=== PATIENT | female | born 1985 | race Caucasian/White ===

== ENCOUNTER 2018-07-18 19:06 | Emergency (ER) | payer SELFPAY ==
--- NOTE | 2018-07-18 19:18 | ER Report ---
History and Physical Time Seen By MD: 19:18 HPI/ROS CHIEF COMPLAINT: Forearm laceration HISTORY OF PRESENT ILLNESS: This is a 33-year-old female. She's been frustrated recently, was doing some cutting on her arms. She has done this in the past. She denies being suicidal or wanting to hurt anybody else. Cutting was a little too deep on the forearm and she has 2 areas of the cutting that look like they need to be repaired. Denies any weakness or compromise of motor function. No sensory problem. She has a good support network in place can help her with stress at this point. She is not interested in coming into the hospital for help with this. Allergies: Coded Allergies: cephalexin (Verified Adverse Reaction, Intermediate, itching, 07/18/18) doxycycline (Verified Adverse Reaction, Intermediate, itching, 07/18/18) Home Meds No Active Prescriptions or Reported Meds Reviewed Nurses Notes: Yes Constitutional Vital Sign - Last 24 Hours 07/18/18 19:24 Temp 98.2 Pulse 108 Resp 24 B/P (MAP) 133/87 Pulse Ox 93 O2 Delivery Room Air Physical Exam Gen.: Alert, no acute distress. Skin: Has 2 lacerations on her ventral forearm on the left side. Musculoskeletal: Normal motor function. No tendon compromise. Neuro: Normal sensation. Cardiovascular: Normal peripheral perfusion Medical Decision Making ED Course/Re-evaluation ED Course Procedure: Laceration Repair Verbal consent from patient after discussing repair options, risks and benefits. Wound cleaned extensively with Hibiclens and saline. Anesthesia: Local 1% lidocaine with epinephrine and 0.5% bupivacaine. Location: Left ventral forearm. Length: Both lacerations are approximately 3 cm in length. Character: Into subcutaneous tissue. There were no deep structures involved. No tendon injury was identified. Wound repair: Running . 4-0 Ethilon sutures The wound repair was simple and performed by myself. Wound care instructions discussed. Sutures need to be removed in 7 days. Tetanus booster given. Decision to Disposition Date: Jul 18, 2018 Decision to Disposition Time: 20:11 Depart Departure Latest Vital Signs Vital Signs Date Time Temp Pulse Resp B/P (MAP) Pulse Ox O2 Delivery O2 Flow Rate FiO2 07/18/18 19:24 98.2 108 24 133/87 93 Room Air Impression: Primary Impression: Laceration of left forearm Condition: Improved Disposition: HOME OR SELF-CARE New Scripts No Active Prescriptions or Reported Meds Patient Instructions: Laceration (ED) Additional Instructions: Wound Care: Wash the wound once a day with soap and water. Dry the wound and apply a small amount of antibiotic ointment with a clean dressing. If the dressing becomes wet or dirty, repeat cleaning and dressing as above. No soaking the wound; no swimming. Stitches need to be removed in 5-7 days. Pain Control: Use Tylenol or ibuprofen for pain. Using and ice pack can help reduce swelling. Problem Qualifiers Primary Impression: Laceration of left forearm Encounter type: initial encounter Qualified Codes: S51.812A - Laceration without foreign body of left forearm, initial encounter FREDDY GORDILLO MD Jul 18, 2018 19:18
[2018-07-18 19:24] VITALS: BP 133/87
[2018-07-18] MEDS ORDERED: DIPHTH/TETANUS/ACEL. PERTUSSIS IM ONLY ONE (19:35)
== END 2018-07-18 20:19 | disposition home or self-care (01) ==
LOC: ER 19:21
DX: S51.812A Laceration without foreign body of left forearm, initial encounter (principal)
CPT/HCPCS: 90471; 90715; 99283

== ENCOUNTER 2018-09-27 17:40 | Emergency (ER) | payer MEDICAID ==
--- NOTE | 2018-09-27 18:03 | ER Report ---
History and Physical Time Seen By MD: 18:03 Hx. of Stated Complaint: PATIENT REPORTS RIGHT LOWER ARM NUMBNESS FOR THE LAST 3 WEEKS HPI/ROS CHIEF COMPLAINT: arm/hand numbness and weakness. HISTORY OF PRESENT ILLNESS: This is a 33 year old female. She has been having numbness in the right arm and hand. Onset about 3 weeks ago. At first, she thinks that it was her index finger and middle finger, but not sure, shortly aft er this her whole and forearm to the elbow. Tingling sensation at first, now mostly numb. Feels weak, not able to use hand to do things like hold things or do her hair. She thought it might be an ulnar nerve problem at the elbow which she has experience previously, but this seemed different. Has no other neurologic changes. Denies pain in shoulder or neck region. No injuries. No headache. No vision changes. No dizziness. REVIEW OF SYSTEMS: Constitutional: No fever or chills. Eyes: No vision changes. ENT: No sore throat. No congestion. Cardiovascular: No chest pain. No palpitations. Respiratory: No cough. No shortness of breath. Gastrointestinal: No abdominal pain. No nausea or vomiting. No change in bowel movements. Genitourinary: No dysuria. No frequency Musculoskeletal: No musculoskeletal pain. Skin: No rashes. No bruising. Neurological: As above. Allergies: Coded Allergies: cephalexin (Verified Adverse Reaction, Intermediate, itching, 07/18/18) doxycycline (Verified Adverse Reaction, Intermediate, itching, 07/18/18) Home Meds Active Scripts Cyclobenzaprine Hcl (CYCLOBENZAPRINE HCL) 10 Mg Tablet, 10 MG PO Q8H PRN for MUSCLE SPASMS, #20 TAB 0 Refills Prov:FREDDY GORDILLO MD 09/27/18 Gabapentin (GABAPENTIN) 300 Mg Capsule, 300 MG PO TID, #90 CAPSULE 0 Refills Prov:FREDDY GORDILLO MD 09/27/18 Reviewed Nurses Notes: Yes Constitutional Vital Sign - Last 24 Hours 09/27/18 09/27/18 09/27/18 09/27/18 17:47 17:48 18:00 18:10 Temp 97.9 Pulse 83 81 Resp 24 B/P (MAP) 128/88 (101) 128/88 126/76 (93) Pulse Ox 98 98 O2 Delivery Room Air 09/27/18 09/27/18 09/27/18 09/27/18 18:30 20:30 20:33 21:00 Pulse 80 75 B/P (MAP) 92/69 (77) 137/95 (109) Pulse Ox 98 94 09/27/18 09/27/18 21:00 21:30 Pulse 75 75 Pulse Ox 94 96 Physical Exam General Appearance: The patient is alert. No acute distress. Non-toxic in appearance. Eyes: Pupils are equal, round. Reactive to light. No pallor, injection or icterus. Extraocular movements are intact. ENT: Mucous membranes are moist. Normal oral mucosa. Posterior oropharynx is normal. Neck: Supple and non tender. No lymphadenopathy. Respiratory: Lungs are clear to auscultation. Cardiovascular: Regular rate and rhythm. No murmurs, gallops or rubs. Normal peripheral perfusion. Gastrointestinal: Abdomen is soft and non tender. Nondistended. Normal active bowel sounds. Neurological: Alert and oriented x3. Cranial nerves are intact, eye exam as above, normal motor of the face without droop, Midline tongue and palate is symmetric. Right arm numb from the elbow distally. Normal sensation at the shoulder and upper arm. Weakness in hand mounter, interossious muscles, wrist movement compared to the left side. Normal shoulder and elbow function/strength. Negative tinnels with areas throughout the arm and neck. Skin: Warm and dry. No rashes. Musculoskeletal: Extremities are nontender, specifically no pain in right arm other than paresthesias. No pain in cervical spine, trapezius, levator scapulae, rhomboids, neck muscles. No tenderness in palpation of the midline cervical, thoracic and lumbar spine. DIFFERENTIAL DIAGNOSIS: After history and physical exam, differential diagnosis was considered for right arm numbness and weakness. Does not follow a peripheral nerve pattern or even a cervical nerve root pattern, so concern about central, although start of symptoms would have been questionable for peripheral nerve inv olvement, but current pattern does not clearly show this. Will get labs and MRI cervical spine and brain. Medical Decision Making Data Points Result Diagram: 09/27/18183609/27/181836 Laboratory Hematology Test 09/27/18 18:37 Red Blood Count 5.28 M/uL (4.17-5.56) Mean Corpuscular Volume 90.4 fL (80.0-96.0) Mean Corpuscular Hemoglobin 30.2 pg (26.0-33.0) Mean Corpuscular Hemoglobin Concent 33.4 g/dL (32.0-36.0) Red Cell Distribution Width 13.9 % (11.5-14.5) Mean Platelet Volume 8.4 fL (7.2-11.1) Neutrophils (%) (Auto) 47.3 % (39.4-72.5) Lymphocytes (%) (Auto) 41.9 % (17.6-49.6) Monocytes (%) (Auto) 7.5 % (4.1-12.4) Eosinophils (%) (Auto) 2.7 % (0.4-6.7) Basophils (%) (Auto) 0.6 % (0.3-1.4) Nucleated RBC Relative Count (auto) 0.0 /100WBC Neutrophils # (Auto) 3.8 K/uL (2.0-7.4) Lymphocytes # (Auto) 3.3 K/uL (1.3-3.6) Monocytes # (Auto) 0.6 K/uL (0.3-1.0) Eosinophils # (Auto) 0.2 K/uL (0.0-0.5) Basophils # (Auto) 0.0 K/uL (0.0-0.1) Nucleated RBC Absolute Count (auto) 0.00 K/uL Erythrocyte Sedimentation Rate 2 mm/HOUR (0-20) Sodium Level 141 mmol/L (137-145) Potassium Level 3.7 mmol/L (3.5-5.0) Chloride Level 108 mmol/L (98-107) Carbon Dioxide Level 26 mmol/L (22-31) Blood Urea Nitrogen 13 mg/dl (7-18) Creatinine 0.70 mg/dl (0.52-1.04) Glomerular Filtration Rate Calc > 60.0 Random Glucose 59 mg/dl (75-110) Calcium Level 9.1 mg/dl (8.4-10.2) Total Bilirubin 0.3 mg/dl (0.2-1.3) Aspartate Amino Transf (AST/SGOT) 18 U/L (0-35) Alanine Aminotransferase (ALT/SGPT) 24 U/L (0-56) Alkaline Phosphatase 77 U/L (0-126) C-Reactive Protein < 0.5 mg/dl (<1.0) Total Protein 7.0 g/dl (6.3-8.2) Albumin 4.1 g/dl (3.5-5.0) Chemistry Test 09/27/18 18:37 White Blood Count 8.0 k/uL (4.5-11.0) Red Blood Count 5.28 M/uL (4.17-5.56) Hemoglobin 15.9 g/dL (12.0-16.0) Hematocrit 47.7 % (34.0-47.0) Mean Corpuscular Volume 90.4 fL (80.0-96.0) Mean Corpuscular Hemoglobin 30.2 pg (26.0-33.0) Mean Corpuscular Hemoglobin Concent 33.4 g/dL (32.0-36.0) Red Cell Distribution Width 13.9 % (11.5-14.5) Platelet Count 278 K/uL (150-450) Mean Platelet Volume 8.4 fL (7.2-11.1) Neutrophils (%) (Auto) 47.3 % (39.4-72.5) Lymphocytes (%) (Auto) 41.9 % (17.6-49.6) Monocytes (%) (Auto) 7.5 % (4.1-12.4) Eosinophils (%) (Auto) 2.7 % (0.4-6.7) Basophils (%) (Auto) 0.6 % (0.3-1.4) Nucleated RBC Relative Count (auto) 0.0 /100WBC Neutrophils # (Auto) 3.8 K/uL (2.0-7.4) Lymphocytes # (Auto) 3.3 K/uL (1.3-3.6) Monocytes # (Auto) 0.6 K/uL (0.3-1.0) Eosinophils # (Auto) 0.2 K/uL (0.0-0.5) Basophils # (Auto) 0.0 K/uL (0.0-0.1) Nucleated RBC Absolute Count (auto) 0.00 K/uL Erythrocyte Sedimentation Rate 2 mm/HOUR (0-20) Glomerular Filtration Rate Calc > 60.0 Calcium Level 9.1 mg/dl (8.4-10.2) Total Bilirubin 0.3 mg/dl (0.2-1.3) Aspartate Amino Transf (AST/SGOT) 18 U/L (0-35) Alanine Aminotransferase (ALT/SGPT) 24 U/L (0-56) Alkaline Phosphatase 77 U/L (0-126) C-Reactive Protein < 0.5 mg/dl (<1.0) Total Protein 7.0 g/dl (6.3-8.2) Albumin 4.1 g/dl (3.5-5.0) EKG/Imaging Imaging MR BRAIN/BRAIN STEM W/ & W/O CON Comparisons: None. Additional pertinent history: Weakness involving the right arm with numbness. TECHNIQUE: Multiplanar, multisequence brain MRI was performed with and without gadolinium contrast. Contrast: 15 mL of MultiHance FINDINGS: Sagittal midline structures and craniocervical junction: Negative. Midline shift: None. Ventricles: Negative. Brain parenchyma: Diffusion weighted imaging: Negative. Gradient sequence: Negative. T2 weighted FLAIR images: Negative. Extra-axial spaces: Negative. Dural venous sinuses and major arterial flow voids: Negative. Mastoid air cells and paranasal sinuses: Negative. Surrounding soft tissues and orbits: Negative. Impression: Normal brain MRI with and without contrast. Report Dictated By: Clarence Jones MD at 09/27/2018 8:48 PM MR SPINE CERVICAL W/ & W/O CON COMPARISON: None Additional pertinent history: Right arm weakness and numbness. Technique: Multiplanar multisequence cervical spine MRI was performed with and without gadolinium enhancement. CONTRAST: 15 ml of MultiHance. FINDINGS: Vertebral body height and alignment: Negative Vertebral marrow signal: Negative Vertebral bodies: Negative Cervical spinal cord signal, craniocervical junction and visualized posterior fossa: Negative Surrounding soft tissues: Negative Inspection of the disc spaces reveal the following: C1-C2: Negative C2-C3: Negative C3-C4: Negative C4-C5: Negative C5-C6: Negative C6-C7: Negative C7-T1: Negative Pathologic enhancement: Negative. Impression: Normal cervical spine MRI with and without contrast. Report Dictated By: Clarence Jones MD at 09/27/2018 8:52 PM ED Course/Re-evaluation Clinical Indication for ER IV: Hydration, IV Access ED Course Negative MRI. Worsening pain after MRI, gave a 0.5mg dose of Dilaudid, no improvement. Discussed results of labs and MRI, recommended f/u with Neurology. Trial of Gabapentin, Ibuprofen, Flexeril. Heat/ice and compression of peripheral nerves at elbow and wrist also will be attempted to see if this helps. See instructions below. Decision to Disposition Date: September 27, 2018 Decision to Disposition Time: 21:34 Depart Departure Latest Vital Signs Vital Signs Date Time Temp Pulse Resp B/P (MAP) Pulse Ox O2 Delivery O2 Flow Rate FiO2 09/27/18 21:30 75 96 09/27/18 20:33 137/95 (109) 09/27/18 17:48 97.9 24 Room Air Impression: Primary Impression: Arm paresthesia, right Condition: Improved Disposition: HOME OR SELF-CARE New Scripts Cyclobenzaprine Hcl (CYCLOBENZAPRINE HCL) 10 Mg Tablet 10 MG PO Q8H PRN for MUSCLE SPASMS, #20 TAB 0 Refills Prov: FREDDY GORDILLO MD 09/27/18 Gabapentin (GABAPENTIN) 300 Mg Capsule 300 MG PO TID, #90 CAPSULE 0 Refills Prov: FREDDY GORDILLO MD 09/27/18 Patient Instructions: Paresthesia (ED) Additional Instructions: We did not find a definitive cause for the nerve pain and numbness in your arm. MRI imaging was negative. You will need to follow-up with Neurology. Dr. Carla Argueta MD comes to [place] and is part of the [facility]. Her number is . We are going to start the following medications: Gabapentin 300mg. Start with one at bedtime for about 3 days, then increase to twice a day for 3 days, then increase to taking one three times a day. Flexeril 10mg, one every 8 hours for muscle spasm and pain. Ibuprofen 200mg over the counter tablets, take 4 tablets 3 times a day with food. You can try alternating heat and ice on the neck, shoulder, and arm area to see if this helps. You can try using compression on the wrist and elbow with OTTO compression wraps. FREDDY GORDILLO MD September 27, 2018 18:03
[2018-09-27] MEDS ORDERED: NS(*) 0.9% 1000 ML BAG 1,000 ML IV ONE (18:35)
[2018-09-27] MEDS ORDERED: GADOBENATE 529MG/1ML 15ML VIAL IVP ONE (18:53)
[2018-09-27 18:56] LABS: PLATELET COUNT, AUTOMATED 278 K/uL (150-450)
[2018-09-27 20:33] VITALS: BP 137/95
[2018-09-27] MEDS ORDERED: HYDROMORPHONE HCL 1 MG/ML SYRINGE IVP ONE (20:50)
--- NOTE | 2018-09-27 20:58 | RADIOLOGY IMAGING REPORT ---
FACILITY: [facility] PATIENT NAME: Ana Cristina Canales : 1985 MR: [id number] V: [id number] EXAM DATE: ORDERING PHYSICIAN: FREDDY GORDILLO TECHNOLOGIST: Location: [facility] [place] Patient: Ana Cristina Canales : 1985 Visit/Account:[id number] Date of Sevice: 09/27/2018 MR SPINE CERVICAL W/ & W/O CON COMPARISON: None Additional pertinent history: Right arm weakness and numbness. Technique: Multiplanar multisequence cervical spine MRI was performed with and without gadolinium enh ancement. CONTRAST: 15 ml of MultiHance. FINDINGS: Vertebral body height and alignment: Negative Vertebral marrow signal: Negative Vertebral bodies: Negative Cervical spinal cord signal, craniocervical junction and visualized posterior fossa: Negative Surrounding soft tissues: Negative Inspection of the disc spaces reveal the following: C1-C2: Negative C2-C3: Negative C3-C4: Negative C4-C5: Negative C5-C6: Negative C6-C7: Negative C7-T1: Negative Pathologic enhancement: Negative. Impression: Normal cervical spine MRI with and without contrast. Report Dictated By: Clarence Jones MD at 09/27/2018 8:52 PM Report E-Signed By: Clarence Jones MD at 09/27/2018 8:55 PM WSN:[email or web address]
--- NOTE | 2018-09-27 21:02 | RADIOLOGY IMAGING REPORT ---
FACILITY: [facility] - [place] PATIENT NAME: Ana Cristina Canales : 1985 MR: [id number] V: [id number] EXAM DATE: ORDERING PHYSICIAN: FREDDY GORDILLO TECHNOLOGIST: Location: [facility] [place] Patient: Ana Cristian Canales : 1985 Visit/Account:[id number] Date of Sevice: 09/27/2018 MR BRAIN/BRAIN STEM W/ & W/O CON Comparisons: None. Additional pertinent history: Weakness involving the right arm with numbness. TECHNIQUE: Multiplanar, multisequence brain MRI was performed with and without gadolinium contrast. Contrast: 15 mL of MultiHance FINDINGS: Sagittal midline structures and craniocervical junction: Negative. Midline shift: None. Ventricles: Negative. Brain parenchyma: Diffusion weighted imaging: Negative. Gradient sequence: Negative. T2 weighted FLAIR images: Negative. Extra-axial spaces: Negative. Dural venous sinuses and major arterial flow voids: Negative. Mastoid air cells and paranasal sinuses: Negative. Surrounding soft tissues and orbits: Negative. Impression: Normal brain MRI with and without contrast. Report Dictated By: Clarence Jones MD at 09/27/2018 8:48 PM Report E-Signed By: Clarence Jones MD at 09/27/2018 8:58 PM WSN:[email or web address]
[2018-09-27] MEDS ORDERED: GABAPENTIN 300 MG CAP PO ONE (21:30)
[2018-09-27] MEDS ORDERED: IBUPROFEN 800 MG TAB PO ONE (21:30)
[2018-09-27] MEDS ORDERED: CYCLOBENZAPRINE HCL 10 MG TAB PO ONE (21:30)
[2018-09-27] MEDS ORDERED: GABA-549 PO (21:35)
[2018-09-27] MEDS ORDERED: CYCL10TA29 PO (21:35)
== END 2018-09-27 21:53 | disposition home or self-care (01) ==
LOC: ER 18:04
DX: R20.2 Paresthesia of skin (principal)
CPT/HCPCS: 70553; 72156; 85025; 85651; 86140; 96361; 96374; 99284; A9577; J1170; J7030; 82040; 82247; 82310; 82374; 82435; 82565; 82947; 84075; 84132; 84155; 84295; 84450; 84460; 84520